=== PATIENT | female | born 1990 | race Caucasian/White ===

== ENCOUNTER 2019-08-15 10:56 | Emergency (ER) | payer SELFPAY ==
[2019-08-15 11:09] VITALS: BP 128/88; PULSE 102; RESP 16; TEMP 36.4; O2SAT 99
--- NOTE | 2019-08-15 11:46 | ED.GENADULT ---
HPI - General Adult General Chief complaint: Nausea/Vomiting/Diarrhea Stated complaint: Throwing Up Time Seen by Provider: 08/15/19 11:46 History of Present Illness HPI narrative: This patient's had a 3-day history of intestinal upset with vomiting and diarrhea. She vomited approximately 15 times yesterday without any coffee-ground emesis or hematemesis. She has had 3-4 episodes of vomiting since she got up this morning. Again without any hematemesis or coffee-ground emesis. She has had 2-3 loose stools per day without any blood in the stools or black stools. She thought she might of had a low-grade fever but did not actually take it with a thermometer. She has not been traveling. No household members have been ill. She has not eaten at any restaurants or any food contamination problems have been reported. She has not changed her diet. She has not had any ear pain, no nasal drainage, no sore throat, no cough. She has had no hematuria, no dysuria, no pyuria. She has had no rashes. She said no known exposure to anyone with strep throat, mono, influenza, bronchitis, pneumonia that she is aware of. She has not been traveling. She has no history of pancreatitis, gallbladder disease, hepatitis, Crohn's disease, ulcerative colitis or other problems. She has not had any heartburn or reflux sensation. She states she is not and her last menstrual period was 1 week ago and normal. Related Data Allergies Allergy/AdvReac Type Severity Reaction Status Date / Time No Known Allergies Allergy Unverified 08/15/19 11:40 Review of Systems Review of Systems: Narrative: CONSTITUTIONAL: Denies fever, chills, or sweats. Noncontributory except as pertains to the past medical history and history of present illness. EYES: Denies visual changes, redness, or discharge. ENT: Denies rhinorrhea, congestion, sore throat, or otalgia. CARDIOVASCULAR: Denies chest pain, palpitations, or edema. RESPIRATORY: Denies cough or dyspnea. GASTROINTESTINAL: Denies abdominal pain, nausea, vomiting, or diarrhea. GENITOURINARY: Denies dysuria or hematuria. SKIN: Denies rash or itching. MUSCULOSKELETAL: Denies back pain, joint pain, or myalgia. NEUROLOGIC: Denies headache, numbness, or weakness. PSYCHIATRIC: Denies anxiety or depression. PMFSH Comments At time of signature, I have reviewed and agree with nursing past medical, surgical, social, and family history.Please see nursing chart for further information. There is no relevant family history pertinent to the presenting complaint. Exam Narrative: Exam Narrative: GENERAL: Well-appearing, well-nourished, and in no acute distress. HEAD: Normocephalic, atraumatic. EYES: PERRLA and EOMI. EARS: TM's clear bilaterally and the canals are clear. NOSE: Nares clear, no rhinorrhea or epistaxis. THROAT:Mucous membranes moist.Oropharynx Normal Without erythema or exudates. NECK: Supple. No adenopathy of the neck, supraclavicular, axillary, or inguinal areas. RESPIRATORY: No respiratory distress. Airway patent. Respirations non-labored. Clear to auscultation. There are no wheezes, no rales, no retractions, no use accessory muscle respirations. Patient's not cyanotic and not dyspneic. Her pulse ox on room air is 99% current temperature is 36.4 ?C. HEART: Regular rate and rhythm. No murmur heard. Normal peripheral pulses. ABDOMEN: Soft, nontender, nondistended, normal active bowel sounds.No masses. No rebound or guarding, No organomegaly. There is no CVA pain. No pain McBurney's point. She has a negative Dominguez sign and negative Rovsing sign. There are no pulsatile masses and no audible bruits. EXTREMITIES: No clubbing/cyanosis/ edema. Normal strength & range of motion. SKIN: Warm, dry.Normal color. No skin rash or skin lesions. She is well-nourished well-hydrated has moist mucous membranes and no tenting of the skin. NEURO: Alert and oriented. CN 2-12 grossly intact. No focal deficits. PSYCH: Normal mood and affect.
== END 2019-08-15 12:00 | disposition home or self-care (01) ==
PROVIDERS: Emergency Provider Family Medicine
DX: K52.9 Noninfective gastroenteritis and colitis, unspecified (principal)
CPT/HCPCS: 99213; G0463

== ENCOUNTER 2020-07-03 14:26 | Emergency (ER) | payer BC, SELFPAY ==
[2020-07-03 14:38] VITALS: BP 123/85; PULSE 81; RESP 16; TEMP 36.8; O2SAT 100
--- NOTE | 2020-07-03 15:16 | ED.FEMALEGU ---
HPI - Female Genitourinary General Chief complaint: Urogenital-Female Stated complaint: possible uti Source: patient and RN notes reviewed Mode of arrival: ambulatory Limitations: no limitations History of Present Illness HPI Narrative: This is a 29-year-old white female who presented to urgent care today complaining of painful urination, flank pain and suprapubic pain. According to patient she started experiencing the symptoms on 06/29/2020. She did ra cranberry juice with no relief. The patient denies SOB, CP, palpitation, extremity numbness, lightheadedness, dizziness, constipation, diarrhea, chills, or fever. Related Data Allergies Allergy/AdvReac Type Severity Reaction Status Date / Time No Known Allergies Allergy Unverified 08/15/19 11:40 Review of Systems Review of Systems: All systems reviewed & are unremarkable except as noted in HPI and below (10 point system review) [facility] Social History Social History Gender identity (if verbalized by the patient): Female Exam Narrative: Exam Narrative: GENERAL: This is a well-nourished, well-developed patient, in no apparent distress. HEAD: normocephalic, atraumatic. EYES: PERRL. Sclera clear/white. Vision is grossly intact. EARS: External ears normal, auditory canals clear and without drainage, TMs normal without perforation. Hearing grossly intact. NOSE: External nose normal with no obvious nasal discharge, nares without redness, no rhinorrhea. THROAT: Mucous membranes moist, posterior pharynx clear. NECK: Neck supple, non-tender without lymphadenopathy, masses or thyromegaly. CARDIOVASCULAR: Regular rate and rhythm without murmurs, gallops, or rubs. RESPIRATORY: Clear to auscultation. Breath sounds equal bilaterally. No wheezes, rales, or rhonchi. GASTROINTESTINAL: Abdomen soft, non-tender, nondistended. Bowel sounds are active. No hepato-splenomegaly, or palpable masses. No guarding. CVA negative SKIN: warm, intact with no suspicious lesions or rash, good texture and turgor. NEURO: awake, alert, and oriented to person, place and time. There were no obvious focal neurologic abnormalities. Steady gait EXTREMITIES: Normal range of motion. No edema. No calf tenderness. Negative Homans sign bilaterally. BACK: Nontender without deformity or crepitance. No flank tenderness. Course Course Emergency Course: Patient will receive Bactrim twice daily for 7 days Vital Signs Vital signs: Vital Signs Temperature 98.2 F 07/03/20 14:38 Pulse Rate 81 07/03/20 14:38 Respiratory Rate 16 07/03/20 14:38 Blood Pressure 123/85 07/03/20 14:38 Pulse Oximetry 100 07/03/20 14:38 Temperature 98.2 F 07/03/20 14:38 Pulse Rate 81 07/03/20 14:38 Respiratory Rate 16 07/03/20 14:38 Blood Pressure 123/85 07/03/20 14:38 Pulse Oximetry 100 07/03/20 14:38 MDM - Female Genitourinary Differential Diagnosis Differential diagnosis: Likely urinary tract infection Lab Data Attestation: I reviewed the patient's lab results. Lab results narrative: Culture sent out Labs: Urine Glucose Negative Reference Range: Negative Urine Bilirubin Negative Reference Range: Negative Urine Ketone Negative Reference Range: Negative Urine Specific [place] 1.025 Reference Range:1.001-1.035 Urine Blood 1+ Reference Range: Negative * * Urine pH 6.0 Reference Range: 5.0-9.0 Urine Protein Negative Reference Range: Neg
== END 2020-07-03 15:18 | disposition home or self-care (01) ==
PROVIDERS: Emergency Provider Nurse Practitioner
DX: N39.0 Urinary tract infection, site not specified (principal)
CPT/HCPCS: 81003; 87077; 87086; 87088; 99213; G0463

== ENCOUNTER 2021-01-10 17:33 | Emergency (ER) | payer BC, SELFPAY ==
[2021-01-10 17:56] VITALS: BP 128/79; PULSE 95; RESP 16; TEMP 37.1; O2SAT 99
--- NOTE | 2021-01-10 19:01 | ED.ABDPAIN ---
HPI - Abdominal Pain General Chief Complaint: Abdominal Pain Stated Complaint: vomiting/diarrhea Time Seen by Provider: 01/10/21 19:01 Source: patient and RN notes reviewed Mode of arrival: ambulatory Limitations: no limitations History of Present Illness HPI narrative: 30-year-old 4 month gestational female presents with complaints of nausea, vomiting, diarrhea, and intermittent abdominal pain for 1 day. ?Phoebe reports increasing nausea and vomiting throughout the day. ?Nausea, vomiting, diarrhea, and abdominal pain without blood. ?Reglan without relief. ?Phoebe reports vomiting with 1st . ?Exacerbating factors consist of eating and drinking. LBM today at approximately 16:15 without blood. ?Denies fever or chills. ?Denies headache, dizziness, and dysuria. ?Tolerating po intake fairly. ?Remains active. ?The patient reports she was diagnosed with COVID-19 in November 2019. The patient reports she is not waiting for the results of a COVID-19 lab test. ?The patient reports she does not have weakness or fatigue. ?The patient reports she does not have a new or worsening cough or shortness of breath. ?Denies chest pain. The patient reports she does not have any rhinorrhea, congestion, sore throat, or loss of taste or smell. ?Denies recent traveling. Denies concerns for COVID-19 or exposures. ?At this time, the patient is not suspected of having COVID-19. Some parts of this dictation were generated by voice recognition software and may contain typographical and/or grammatical inaccuracies. Related Data Home Medications Medication Instructions Recorded Confirmed metoclopramide HCl [Reglan] 10 mg PO Q6H 01/10/21 01/10/21 Allergies Allergy/AdvReac Type Severity Reaction Status Date / Time No Known Allergies Allergy Verified 01/10/21 18:06 Review of Systems Review of Systems: Narrative: CONSTITUTIONAL: Denies fever, chills, sweats. EYES: Denies visual changes, redness, discharge. ENT: Denies rhinorrhea, congestion, sore throat, otalgia. CARDIOVASCULAR: Denies chest pain, palpitations, edema. RESPIRATORY: Denies dyspnea, wheezing, cough. GASTROINTESTINAL: Complains of abdominal pain, vomiting, diarrhea, nausea, and decrease appetite. GENITOURINARY: Denies dysuria, hematuria, abnormal discharge. SKIN: Denies rash or itching. MUSCULOSKELETAL: Denies acute back pain, joint pain, or myalgia. NEUROLOGIC: Denies numbness or focal weakness. PSYCHIATRIC: Denies anxiety or depression. All systems reviewed & are unremarkable except as noted in HPI and below. PMFSH Past Medical History Medical History (Updated 01/16/21 @ 10:25 by TAMMY Rosado) Vomiting during Surgical History Surgical History (Updated 01/16/21 @ 18:54 by TAMMY Rosado) No significant past surgical history Family History Family History (Updated 01/16/21 @ 18:54 by TAMMY Rosado) Father , unknown reason per Phoebe Unknown family medical history Mother Hypertension Asthma Social History Social History (Updated 01/16/21 @ 18:50 by TAMMY Rosado) Smoking status: Former smoker Tobacco type: cigarettes Second hand tobacco smoke exposure: Yes Smoking end date: 06/06/20 Alcohol intake: former Alcohol use details: stopped using alcohol once she found out she was Substance use: never Substance use type: does not use Living arrangements: with family Occupation/Education: occupation Gender identity (if verbalized by the patient): Female Sexual Orientation (if Verbalized by the Patient): Straight or Heterosexual Comments At time of signature, I have reviewed and agree with the nursing past medical, surgical, social, and family history. Please see the nursing chart for further information. There is no relevant family history pertinent to the presenting complaint. Exam Narrative: Exam Narrative: GENERAL: This is a well-nourished, well-developed patient, in no
--- NOTE | 2021-01-10 19:15 | PC.NURSE ---
1913- Pt given jak maradiaga and crackluis
[2021-01-11 15:39] LABS: SARS-CoV-2 RNA PCR Negative
== END 2021-01-10 19:28 | disposition home or self-care (01) ==
PROVIDERS: Emergency Provider Nurse Practitioner Family
DX: O99.612 Diseases of the digestive system complicating pregnancy, second trimester (principal); Z3A.00 Weeks of gestation of pregnancy not specified; K52.9 Noninfective gastroenteritis and colitis, unspecified; O21.0 Mild hyperemesis gravidarum; Z87.891 Personal history of nicotine dependence; Z20.822 Contact with and (suspected) exposure to COVID-19
CPT/HCPCS: 99213; C9803; G0463; U0003; U0005

== ENCOUNTER 2021-03-04 19:47 | Observation (INO) | payer BC, SELFPAY ==
--- NOTE | 2021-03-04 20:00 | OBADM ---
This patient, Phoebe Brooks, admitted to the OB room OB Post 116 for observation. Patient/family oriented to hospital policies and general routines including ID bracelet, bed and alarms, visiting hours, pain management, procedures, bathroom and other care routines, personal items, smoking policy, room service/diet, and visiting hours. Patient/Family are encouraged to report perceived risks to care and to ask questions if they do not understand what they are told or what they should do.
[2021-03-04 20:05] VITALS: BMI 31.3
--- NOTE | 2021-03-04 21:00 | PC.NURSE ---
Pt had no contractions after arrival and states she she feels like she was on her feet too long. Dr. Blackwell notified of assessment at 2058. Pt to be discharged to home.
[2021-03-04 21:31] VITALS: BP 124/82; PULSE 87
--- NOTE | 2021-03-06 20:18 | PM.OBTRLD ---
OB - Triage/Final Diagnosis Visit Information Reason for evaluation: threatened labor Comments/Additional reasons for admission: I have assessed the risk for this patient, Phoebe Brooks, and determined that she would benefit from observation care.
== END 2021-03-04 21:53 | disposition home or self-care (01) ==
PROVIDERS: Admitting Provider Obstetrics & Gynecology; Visit Provider Obstetrics & Gynecology
DX: O47.03 False labor before 37 completed weeks of gestation, third trimester (principal); Z3A.21 21 weeks gestation of pregnancy
CPT/HCPCS: G0378; G0379

== ENCOUNTER 2021-04-20 19:28 | Emergency (ER) | payer BC, SELFPAY ==
--- NOTE | ~2021-04-20 | XR_ITS ---
EXAMINATION: XR chest 1V DATE: 04/20/2021 20:27 INDICATION: Shortness of breath on exertion. Dizziness. Left arm numbness. TECHNIQUE: A single frontal view of the chest was obtained. COMPARISON: Chest 2 views 10/16/2015 FINDINGS: The chest demonstrates clear lungs without pneumonia, pleural effusion, or pneumothorax. Th e heart size is normal. Surgical clips in the right upper quadrant are likely from cholecystectomy. IMPRESSION: 1. No acute cardiopulmonary disease. Reviewed, dictated and finalized at location A.
--- NOTE | ~2021-04-20 | CT_ITS ---
EXAMINATION: CTA chest PE protocol DATE: 04/21/2021 08:50 CDT INDICATION: . Shortness of breath. TECHNIQUE: Computed tomographic angiography (CTA) of the chest was performed with 100 mL Omnipaque-35 0 intravenous contrast. The dose-length product was 264.15 mGy-cm. Maximum intensity projection 3D-re constructions of the aorta and other arteries were constructed by the technologist on a separate work station. Automated exposure control and iterative reconstruction technique were employed. COMPARISON: None. FINDINGS: No significant pleural or pericardial effusion. Slightly increased number and size of axill jareth lymph nodes, likely reactive. Study is technically adequate without evidence for pulmonary emboli sm. No mediastinal or hilar lymphadenopathy. No significant pleural or pericardial effusion. Evaluati on of peripheral pulmonary arteries limited by motion artifact. The upper abdomen is unremarkable. No focal airspace consolidation. No endobronchial lesions. No evidence for aortic aneurysm or dissectio n. There are cholecystectomy clips. IMPRESSION: 1. No evidence for pulmonary embolism. No acute cardiopulmonary disease. Reviewed, dictated and finalized at location A.
[2021-04-20 19:52] VITALS: BP 126/74; PULSE 92; RESP 20; TEMP 36.2; O2SAT 100
--- NOTE | 2021-04-20 19:58 | ECG_ITS ---
Measurements Intervals [place] Rate: 84 P: 65 KS: 105 QRS: 28 QRSD: 85 T: 16 QT: 359 QTc: 424 Interpretive Statements SINUS RHYTHM WITH SHORT [place] INTERVAL INCOMPLETE RIGHT BUNDLE BRANCH BLOCK BORDERLINE ECG Electronically Signed On 04-21-2021 6:15:53 CDT by Shabbir Castellano D.O.
[2021-04-20 21:35] LABS: Basophils Absolute Auto 0.1 K/mm3 (0.0-0.1); Basophils Percent Auto 0.4 % (0.2-1.2); Eosinophils Absolute Auto 0.1 K/mm3 (0-0.3); Eosinophils Percent Auto 0.5 % (0-4.4); Hemoglobin 12.8 g/dL (12.0-15.0); Immature Granulocyte Absolute 0.07 K/mm3 (0.00-0.031); Immature Granulocyte Percent A 0.5 % (0-0.5); Lymphocytes Absolute Auto 3.12 K/mm3 (0.9-3.2); Lymphocytes Percent Auto 22.8 % (18.3-44.2); Mean Corpuscular HGB Conc 32.8 g/dl (32-36); Mean Corpuscular Hemoglobin 29.8 pg (26-34); Mean Corpuscular Volume 90.9 fl (80-100); Mean Platelet Volume 9.5 fl (7.4-10.4); Monocytes Absolute Auto 0.8 K/mm3 (0.1-0.6); Monocytes Percent Auto 5.5 % (2.6-8.5); Neutrophils Absolute Auto 9.6 K/mm3 (1.3-6.7); Neutrophils Percent Auto 70.3 % (45.5-73.1); Platelet Count Result 317 k/mm3 (150-375); Red Blood Count 4.29 M/mm3 (4.2-5.4); Red Cell Distribution Width 11.9 % (11.5-14.5); White Blood Count 13.7 K/mm3 (4.5-10.0)
[2021-04-20 21:46] LABS: Anion Gap 12 mmol/L (8-16); Blood Urea Nitrogen 11 mg/dL (7-17); Calcium 9.3 mg/dL (8.4-10.2); Carbon Dioxide 18 mmol/L (22-30); Chloride 106 mmol/L (98-107); Estimated CRCL calculation 99 ml/min; Estimated Glomerular Filt Rate > 60; Glucose 75 mg/dL (65-110); Sodium 136 mmol/L (137-145)
[2021-04-20 21:47] LABS: INR 0.9; Partial Thromboplastin Time 24.7 SECONDS (22.3-36.8); Prothrombin Time 12.2 Seconds (11.1-14.7)
[2021-04-20 21:58] LABS: NT Pro B Type Natriuretic Pept 44 pg/mL (5-100); Troponin I < 0.012 ng/mL (0.000-0.034)
--- NOTE | 2021-04-21 00:23 | ED.SOB ---
HPI - SOB/Dyspnea General Chief Complaint: Shortness of Breath/Dyspnea Stated Complaint: short of breath, 28 weeks Time Seen by Provider: 04/20/21 23:53 Source: patient Mode of arrival: ambulatory Limitations: no limitations History of Present Illness HPI Narrative: This is a 30 year old female [place] 28 weeks who presents for evaluation of shortness of breath. Patient has been noticed that she has been short of breath lately. This afternoon while she was at work she states she became dizzy. She states she started her shift at work at 3 pm. Around 4 pm, she was standing when became dizzy , sob and with weird Numbness in her arms. She denies chest pain, cough, nausea, vomiting, or fever. She reports this episode lasted 5 minutes. She reports having 3 episodes while she was at work so she came to ER. She thought her shortness of breath was due to . She reports she has had no symptoms in ER because she has been rest. She walked to bathroom and she reports shortness of breath with exertion but denies chest pain. She did not have dizziness either with ambulation in ER. She denies abdominal pain, cramping or spotting. Related Data Allergies Allergy/AdvReac Type Severity Reaction Status Date / Time No Known Allergies Allergy Verified 04/20/21 19:55 Review of Systems Review of Systems: All systems reviewed & are unremarkable except as noted in HPI and below PMFSH Past Medical History Medical History (Updated 04/21/21 @ 03:23 by Maggie Mcnally MD) Vomiting during Surgical History Surgical History (Updated 01/16/21 @ 18:54 by TAMMY Rosado) No significant past surgical history Family History Family History (Updated 01/16/21 @ 18:54 by TAMMY Rosado) Father , unknown reason per Phoebe Unknown family medical history Mother Hypertension Asthma Social History Social History (Updated 01/16/21 @ 18:50 by TAMMY Rosado) Smoking status: Former smoker Tobacco type: cigarettes Second hand tobacco smoke exposure: Yes Smoking end date: 06/06/20 Alcohol intake: former Alcohol use details: stopped using alcohol once she found out she was Substance use: never Substance use type: does not use Gender identity (if verbalized by the patient): Female Sexual Orientation (if Verbalized by the Patient): Straight or Heterosexual Exam Const: General: no acute distress and alert Orientation/consciousness: patient oriented x3 Eyes: Pupils: Equal, round and reactive pupils present EOM: EOMs intact bilaterally Resp: Effort & Inspection: normal respiratory effort and no retractions Auscultation: clear to auscultation bilaterally Cardio: Rate: regular rate Rhythm: regular rhythm Heart sounds: no murmurs GI: GI Palp: Yes Soft to palpation, No Tenderness to palpation present (GI), No Guarding due to palpation present (GI) and No Rigid due to palpation Auscultation: normal bowel sounds Other: gravid Skin: General skin exam: normal color Rashes: no rashes Neuro: General: patient oriented x3, moves all extremities and CN's II-XI intact bilaterally Extrem: General: normal to inspection Psych: Mental Status: mental status grossly normal Affect: normal affect Course Reevaluation(s) Reevaluation #1: Patient presented with shortness of breath with exertion . I Discussed CT risk and benefits regarding her . She was agreeable to CTA to rule out PE due to hypercoagulable state. No PE found on CT. She has mild leukocytosis. She has no dizziness . She will be discharged to follow up with OB. Date: 04/21/21 Time: 03:19 Vital Signs Vital signs: Vital Signs Temperature 97.2 F L 04/20/21 19:52 Pulse Rate 92 04/20/21 19:52 Respiratory Rate 20 04/20/21 19:52 Blood Pressure 126/74 04/20/21 19:52 Pulse Oximetry 100 04/20/21 19:52 Temperature 97.2 F L 04/20/21 19:52 Pulse Rate 75
[2021-04-21 00:32] VITALS: BP 115/80; PULSE 80
[2021-04-21 00:33] VITALS: BP 126/94; BP 132/82; PULSE 79; PULSE 83
[2021-04-21 00:48] LABS: Add Urine Microscopic? YES; Appearance Urine Clear (Clear); Bacteria Urine Trace /hpf; Bilirubin Urine Negative (Negative); Blood Urine Negative (Negative); Color Urine Yellow (Yellow); Glucose Urine UA Negative (Negative); Ketones Urine 1+ mg/dL (Negative); Leukocyte Esterase Ur Trace LEU/UL (Negative); Mucus Urine Rare /lpf; Nitrate Urine Negative (Negative); Protein Urine 1+ mg/dL (Negative); Specific Grav Ur 1.028 (1.001-1.035); Squamous Epithelial Cell Urine Few /hpf (Few); WBC Urine 0-3 /hpf
[2021-04-21 01:41] VITALS: BP 119/80; PULSE 76; RESP 20; O2SAT 100
[2021-04-21 03:10] VITALS: BP 111/79; PULSE 75; RESP 18; O2SAT 100
== END 2021-04-21 03:47 | disposition home or self-care (01) ==
PROVIDERS: Emergency Medicine; Emergency Provider General Practice
DX: O26.893 Other specified pregnancy related conditions, third trimester (principal); R06.00 Dyspnea, unspecified; Z87.891 Personal history of nicotine dependence; Z3A.28 28 weeks gestation of pregnancy; I45.10 Unspecified right bundle-branch block
CPT/HCPCS: 36415; 71045; 71275; 80048; 81001; 83880; 84484; 85025; 85610; 85730; 93005; 99284; Q9967

== ENCOUNTER 2021-06-01 12:28 | Outpatient (RCR) | payer BC, SELFPAY ==
[2021-06-01 13:02] VITALS: BP 108/67; PULSE 80
== END 2021-07-19 09:40 | disposition home or self-care (01) ==
LOC: ANHOBOP 12:28
PROVIDERS: Visit Provider Obstetrics & Gynecology
DX: O24.419 Gestational diabetes mellitus in pregnancy, unspecified control (principal); Z3A.34 34 weeks gestation of pregnancy
CPT/HCPCS: 59025

== ENCOUNTER 2021-06-04 15:42 | Observation (INO) | payer BC, SELFPAY ==
[2021-06-04 16:05] VITALS: BP 116/78; PULSE 87
[2021-06-04 16:15] VITALS: BP 111/82; PULSE 90
[2021-06-04 16:30] VITALS: BP 111/75; PULSE 88
[2021-06-04 16:30] LABS: Add Urine Microscopic? YES; Appearance Urine Cloudy (Clear); Bacteria Urine Trace /hpf; Bilirubin Urine Negative (Negative); Blood Urine Negative (Negative); Color Urine Yellow (Yellow); Glucose Urine UA Negative (Negative); Ketones Urine Negative (Negative); Leukocyte Esterase Ur Trace LEU/UL (Negative); Mucus Urine Rare /lpf; Nitrate Urine Negative (Negative); Protein Urine Negative (Negative); Specific Grav Ur 1.026 (1.001-1.035); Squamous Epithelial Cell Urine Occasional /hpf (Few); Urobilinogen Urine Negative mg/dL (<2.0)
[2021-06-04 16:45] VITALS: BP 119/76; PULSE 88
[2021-06-04 16:58] VITALS: TEMP 36.6
--- NOTE | 2021-06-04 17:06 | OBADM ---
This patient, Phoebe Brooks, admitted to the OB room OB Post 111 for observation. Patient/family oriented to hospital policies and general routines including ID bracelet, bed and alarms, visiting hours, pain management, procedures, bathroom and other care routines, personal items, smoking policy, room service/diet, and visiting hours. Patient/Family are encouraged to report perceived risks to care and to ask questions if they do not understand what they are told or what they should do.
--- NOTE | 2021-06-04 17:41 | PM.OBTRLD ---
OB - Triage/Final Diagnosis Visit Information Comments/Additional reasons for admission: I have assessed the risk for this patient, Phoebe Brooks, and determined that she would benefit from observation care. Evaluation Laboratory results: Laboratory Tests 06/04/21 16:19 Urine Color Yellow Urine Appearance Cloudy H Urine pH 5.0 Ur Specific [place] 1.026 Urine Protein Negative Urine Glucose (UA) Negative Urine Ketones Negative Ur Blood (Man) Negative Urine Nitrate Negative Urine Bilirubin Negative Urine Urobilinogen Negative Leukocyte Esterase Rfl Trace H Urine RBC 3-5 H Urine WBC 4-6 H Ur Squamous Epith Cells Occasional Urine Bacteria Trace Urine Mucus Rare Vital signs: Vital Signs - 24 hr 06/04/21 16:05 06/04/21 16:15 06/04/21 16:30 Temperature Pulse Rate 87 90 88 Blood Pressure 116/78 111/82 111/75 06/04/21 16:45 06/04/21 16:58 Temperature 36.6 C Pulse Rate 88 Blood Pressure 119/76 Final Diagnosis (1) Abdominal pain affecting : Code(s): O26.899 - Other specified related conditions, unspecified trimester; R10.9 - Unspecified abdominal pain Status: Acute (2) UTI (urinary tract infection): Code(s): N39.0 - Urinary tract infection, site not specified Status: Acute
== END 2021-06-04 17:20 | disposition home or self-care (01) ==
PROVIDERS: Admitting Provider Obstetrics & Gynecology; Visit Provider Obstetrics & Gynecology
DX: O23.43 Unspecified infection of urinary tract in pregnancy, third trimester (principal); N39.0 Urinary tract infection, site not specified; Z3A.34 34 weeks gestation of pregnancy; O26.893 Other specified pregnancy related conditions, third trimester; R10.9 Unspecified abdominal pain
CPT/HCPCS: 81001; G0378; G0379

== ENCOUNTER 2021-06-10 14:38 | Observation (INO) | payer BC, SELFPAY ==
[2021-06-10 15:00] VITALS: BP 129/71; PULSE 89
[2021-06-10 15:15] VITALS: BP 116/75; PULSE 92
[2021-06-10 15:29] VITALS: BP 116/75; PULSE 91
--- NOTE | 2021-06-10 15:33 | OBADM ---
This patient, Phoebe Brooks, admitted to the OB room Labor/Delivery/Recovery 106 for observation. Patient/family oriented to hospital policies and general routines including ID bracelet, bed and alarms, visiting hours, pain management, procedures, bathroom and other care routines, personal items, smoking policy, room service/diet, and visiting hours. Patient/Family are encouraged to report perceived risks to care and to ask questions if they do not understand what they are told or what they should do.
--- NOTE | 2021-06-10 15:53 | PC.NURSE ---
1526- SPoke with Dr. Blackwell, contractions irregular, patient states they are no stronger than they were before, ROM plus negative orders to discharge patient to home.
== END 2021-06-10 15:53 | disposition home or self-care (01) ==
PROVIDERS: Admitting Provider Obstetrics & Gynecology; Visit Provider Obstetrics & Gynecology
DX: O47.03 False labor before 37 completed weeks of gestation, third trimester (principal); Z3A.35 35 weeks gestation of pregnancy
CPT/HCPCS: 59025; 84112; G0378; G0379

== ENCOUNTER 2021-06-14 20:29 | Outpatient (CLI) | payer BC, SELFPAY ==
[2021-06-14 20:58] VITALS: PULSE 82
[2021-06-14 21:00] VITALS: BP 128/91; PULSE 84
== END 2021-06-14 21:12 | disposition home or self-care (01) ==
LOC: ANHOBOP 20:52 → ANHLDR 06-22 06:51
PROVIDERS: Visit Provider Obstetrics & Gynecology
DX: O26.899 Other specified pregnancy related conditions, unspecified trimester (principal); Z3A.00 Weeks of gestation of pregnancy not specified
CPT/HCPCS: 59025; 99199

== ENCOUNTER 2021-06-23 14:29 | Observation (INO) | payer BC, SELFPAY ==
[2021-06-23 14:50] VITALS: BMI 32.6
--- NOTE | 2021-06-27 11:55 | PM.OBTRLD ---
OB - Triage/Final Diagnosis Visit Information Comments/Additional reasons for admission: I have assessed the risk for this patient, Phoebe Brooks, and determined that she would benefit from observation care.
== END 2021-06-23 16:43 | disposition home or self-care (01) ==
PROVIDERS: Admitting Provider Obstetrics & Gynecology; Visit Provider Obstetrics & Gynecology
DX: O47.1 False labor at or after 37 completed weeks of gestation (principal); Z3A.37 37 weeks gestation of pregnancy
CPT/HCPCS: 99199; G0378; G0379

== ENCOUNTER 2021-06-25 02:00 | Inpatient (IN) | payer BC, SELFPAY ==
[2021-06-25] VITALS (12 sets, daily range): BP systolic 118–144; BP diastolic 75–91; PULSE 71–90; RESP 16–18; TEMP 36.5–36.9; O2SAT 99; BMI 32.6
--- NOTE | 2021-06-25 02:25 | LDADM ---
This patient, Phoebe Brooks, was admitted to Labor/Delivery/Recovery 106 on 06/25/21 at 02:00. Plans for labor, pain management and were discussed with patient. Patient/family oriented to hospital policies and general routines including ID bracelet, bed and alarms, visiting hours, pain management, procedures, bathroom and other care routines, personal items, smoking policy, room service/diet and guest tray routines, security routines, and visiting hours. Patient/Family are encouraged to report perceived risks to care and to ask questions if they do not understand what they are told or what they should do. See OBIX for further documentation.
[2021-06-25 02:43] LABS: Glucose Point of Care 94 mg/dl (65-105)
[2021-06-25 02:46] LABS: Basophils Absolute Auto 0.1 K/mm3 (0.0-0.1); Basophils Percent Auto 0.4 % (0.2-1.2); Eosinophils Absolute Auto 0.1 K/mm3 (0-0.3); Eosinophils Percent Auto 0.5 % (0-4.4); Hematocrit 37.5 % (37.0-47.0); Hemoglobin 12.5 g/dL (12.0-15.0); Immature Granulocyte Percent A 0.7 % (0-0.5); Lymphocytes Absolute Auto 4.24 K/mm3 (0.9-3.2); Lymphocytes Percent Auto 30.9 % (18.3-44.2); Mean Corpuscular HGB Conc 33.3 g/dl (32-36); Mean Corpuscular Hemoglobin 28.3 pg (26-34); Mean Platelet Volume 10.5 fl (7.4-10.4); Monocytes Percent Auto 7.4 % (2.6-8.5); Neutrophils Absolute Auto 8.3 K/mm3 (1.3-6.7); Neutrophils Percent Auto 60.1 % (45.5-73.1); Platelet Count Result 304 k/mm3 (150-375); Red Blood Count 4.41 M/mm3 (4.2-5.4); Red Cell Distribution Width 12.6 % (11.5-14.5); White Blood Count 13.7 K/mm3 (4.5-10.0)
--- NOTE | 2021-06-25 03:35 | PM.IMHP ---
H&P: HPI History of Present Illness Date/Time: 06/25/21 03:26 Phoebe is a 30yo @ 37.6wks (LEILANI 07/10/21) who presented to L&D in active labor; found to be 6cm, requesting epidural. She, however, rapidly dilated and was unable to get an epidural in time. She has had regular care and co-management with [facility]. She reported waking up with painful contractions at 0100. No VB or LOF. Her is complicated by: - A2GDM on metformin and insulin - Request for sterilization; [place] form signed 06/06/21 - Anemia on iron daily - CMV non-immune Chief Complaint: painful contractions Review of Systems Review of Systems: All systems reviewed & are unremarkable except as noted in HPI and below (HPI) [facility] Past Medical History Medical History Vomiting during Surgical History Surgical History No significant past surgical history Family History Family History Father , unknown reason per Phoebe Unknown family medical history Mother Hypertension Asthma Social History Social History Smoking status: Former smoker Tobacco type: cigarettes Second hand tobacco smoke exposure: Yes Smoking end date: 06/06/20 Alcohol intake: former Alcohol use details: stopped using alcohol once she found out she was Substance use: never Substance use type: does not use Gender identity (if verbalized by the patient): Female Sexual Orientation (if Verbalized by the Patient): Straight or Heterosexual Spiritual care concerns: No Meds Home Medications and Allergies Home Medications Medication Instructions Recorded Confirmed Type Novolin N NPH U-100 Insulin 16 unit SUBCUT HS 06/01/21 06/20/21 History PNV cmb#95-ferrous fumarate-FA 1 tablet PO DAILY 06/01/21 06/20/21 History [] insulin lispro [Humalog U-100 6 unit SUBCUT DAILY 06/01/21 06/20/21 History Insulin] metformin 1,000 mg PO BID 06/20/21 06/20/21 History Allergies Allergy/AdvReac Type Severity Reaction Status Date / Time No Known Allergies Allergy Verified 04/20/21 19:55 Exam Const: General: cooperative, healthy appearing and acute distress (with contractions) moderate Resp: Effort & Inspection: normal respiratory effort Cardio: Rate: regular rate GI: Inspection: non-distended GI Palp: No abdominal tenderness and Yes Soft to palpation : Other: FHT's: 130's/ mod megan/ + accels/ no decels - cat 1 TOCO: ctx's q1-2 min Membranes: SROM, clear 0245 Cervix: C/C/+2 Skin: General skin exam: normal color Neuro: General: oriented to person Extrem: General: normal to inspection Psych: Appearance: grossly normal Affect: normal affect Attitude: cooperative H&P: Results Labs Labs: Short CBC 06/25/21 Range/Units 02:31 WBC 13.7 H (4.5-10.0) K/mm3 Hgb 12.5 (12.0-15.0) g/dL Hct 37.5 (37.0-47.0) % Plt Count 304 (150-375) k/mm3 Assessment and Plan Assessment and plan (1) Active labor at term: Status: Acute (2) Gestational diabetes: Qualifiers: Gestational diabetes mellitus control: insulin-controlled Trimester: third trimester Qualified Code(s): O24.414 - Gestational diabetes mellitus in , insulin controlled Code(s): O24.419 - Gestational diabetes mellitus in , unspecified control Status: Acute Additional Plan - Admitted to L&D for precipitous delivery - GBS negative
--- NOTE | 2021-06-25 03:37 | P.PCNOB_ITS ---
OB - Delivery Note Procedure Delivery date: 06/25/21 events: Gestational Diabetes Intrapartal events: Precipitous Labor < 3 hours Induction method: none Delivery monitor: external FHT and external uterine Route of delivery: Laceration Description: Perineal - 1st Degree Delivery repair: vicryl Quantitative Blood Loss (ml): 250 Anesthesia type: None Disposition: floor Baby Date of : 06/25/21 Time of : 03:03 Weeks of gestation at delivery: 37 (.6) gender: Female Weight (pounds): 6 Weight (ounces): 0 presentation: vertex position: Right Occiput Transverse Placenta delivery description: Expressed cord vessel description: 3 Vessels and Delayed Cord Clamping score one minute: 8 score five minutes: 9 Narrative: Phoebe presented to Labor and delivery in active labor and had a precipitous delivery. She pushed with good maternal effort and delivered the head ov er intact perineum. She easily delivered the infant's shoulders and body without complication. The infant was immediately placed skin to skin and had spontaneous cry. The umbilical cord was then clamped and cut. With Pitocin running and gentle downward traction on the cord, the placenta delivered without complications. Good fundal tone with minimal bleeding was noted. Patient was examined and a first-degree perineal laceration was noted. The patient was anesthetized with 1% lidocaine and repaired in normal fashion using 3-0 Vicryl. Good hemostasis was noted. Sponge, lap, instrument, needle counts were correct at the end of procedure. Mom and baby were left bonding in the birthing suite in stable condition.
[2021-06-25] MEDS: IBUPROFEN 600 MG TABLET PO ×3 (05:14→23:49)
--- NOTE | 2021-06-25 06:24 | OBPPTRN ---
06/25/2021 at 0600 Patient transferred to post room 290. Support person present. Patient understands she needs to call out before attempting to ambulate or if any needs arise.
[2021-06-25 09:59] LABS: Rapid Plasma Reagin Non-Reactive (NonReactive)
[2021-06-25] MEDS: ACETAMINOPHEN 325 MG TABLET 650 MG PO (23:49)
[2021-06-26] VITALS: BP 125/83; PULSE 75; RESP 18; TEMP 36.6
[2021-06-26] MEDS: TETANUS,DIPHTHERIA,AC PERTUSSIS ADULT (0.5 ML) BOOSTRIX IM (04:33)
--- NOTE | 2021-06-26 07:41 | P.PNOB_ITS ---
OB - PN: Subj Subjective Date/time seen: 06/26/21 07:41 PPD#1 Phoebe reports doing well today. She reports her bleeding is light. Her pain is controlled with PO meds. She has tolerated regular diet, voided, passed gas and ambulated. She is bottle feeding. She would like to be discharged home today if Марина can also go home. She denies CP, SOB, fever, chills, N/V, LYONS, vision changes, dizziness or palpitations. OB - PN: Obj Data Labs CBC & Chem 7: 06/26/21 04:22 Labs: Laboratory Results - last 24 hr 06/25/21 06/26/21 02:31 04:22 Hgb 10.0 L Hct 30.0 L RPR Non-reactive OB - PN A/P Assessment and Plan (1) Normal vaginal delivery: Code(s): O80 - Encounter for full-term uncomplicated delivery Status: Acute Plan day: 1 Plan: routine care and discharge home (possible today) Comments: - Pelvic rest; f/u 4wks - ER return precautions: fever, n/v/abd pain, bleeding, HTN Time Spent With Patient Time: Total time spent is greater than 50% in coordination of care (as documented) at patient's floor/unit and/or counseling patient: Review of Systems Review of Systems: All systems reviewed & are unremarkable except as noted in HPI and below (HPI) Exam Const: General: cooperative, comfortable and no acute distress Nutritional Appearance: obese Resp: Effort & Inspection: normal respiratory effort Auscultation: clear to auscultation bilaterally Cardio: Rate: regular rate GI: Inspection: normal to inspection and non-distended GI Palp: No abdominal tenderness and Yes Soft to palpation Auscultation: normal bowel sounds : Other: fundus firm Skin: General skin exam: normal color Neuro: General: patient oriented x3 Extrem: General: normal to inspection Psych: Appearance: grossly normal Affect: normal affect Attitude: coope rative
[2021-06-26 08:00] VITALS: BP 119/77; PULSE 73; RESP 18; TEMP 36.8; O2SAT 98
--- NOTE | 2021-06-26 10:28 | PC.NURSE ---
Patient viewed the discharge video Mother & Baby Care, The First Two Weeks online. Patient was given the opportunity and encouraged to ask questions. Patient verbalized understanding of information shared and has been given the mother/baby guide for home reference.
[2021-06-27 09:39] VITALS: BP 118/74; PULSE 80; RESP 20; TEMP 36.4; O2SAT 100
--- NOTE | 2021-06-27 19:08 | PM.OBDSVD ---
DS: Admitting Diagnosis Discharge Date 06/26/21 Admitting Diagnosis active labor at term DS: Discharge Diagnosis Discharge Diagnosis (1) Normal vaginal delivery: Code(s): O80 - Encounter for full-term uncomplicated delivery Status: Acute (2) Gestational diabetes: Qualifiers: Gestational diabetes mellitus control: insulin-controlled Trimester: third trimester Qualified Code(s): O24.414 - Gestational diabetes mellitus in , insulin controlled Code(s): O24.419 - Gestational diabetes mellitus in , unspecified control Status: Acute OB - DS: Summary OB Procedures : NST and Ultrasound OB Procedures Intrapartum: Spontaneous Vag Delivery OB Procedures: : None Peripartum Data Delivery Method: Natural Vaginal Laceration Description: Perineal - 1st Degree complications: none 1: Gender: Female Disposition of : home Status at Discharge Functional status at discharge: independent ambulation Overall status at discharge: patient is back to baseline Time Spent with Patient Time attestation: Total time spent providing and/or coordinating discharge services: Time spent: Less than 30 minutes Exam Const: General: cooperative, healthy appearing, comfortable and no acute distress Resp: Effort & Inspection: normal respiratory effort Auscultation: clear to auscultation bilaterally Cardio: Rate: regular rate GI: Inspection: normal to inspection and non-distended GI Palp: No abdominal tenderness and Yes Soft to palpation Auscultation: normal bowel sounds : Other: fundus firm Skin: General skin exam: normal color Neuro: General: patient oriented x3 Extrem: General: normal to inspection Psych: Appearance: grossly normal Affect: normal affect Attitude: cooperative DS: Data Data Completed and Pending Pending studies at discharge: Pending at discharge 06/25/21 04:29 Surgical [PTH] Routine Discharge Plan Discharge Attending physician on discharge: Avelina Love Discharging Clinician: Avelina Love Anticipated Discharge Date/Time: 06/26/21 17:00 Patient Disposition: Home, Self-Care Activity: pelvic rest Diet: regular Discharge Instructions: Education: Mom and Baby Guide Given to: Mother Follow-Up: Call your delivering provider's office for an appointment to be seen in: 4 Weeks Mom and baby should come to the [facility] for the follow-up appointment. Appointment Date/Time: June 27, 2021 at 10:00 am What to expect at your follow-up visit: Physical Assessment Call [phone] if you are unable to keep your appointment time. BREAST CARE: * Wear a snug supportive bra. * Bottle Feeding: * May apply ice packs EPISIOTOMY/PERINEAL CARE: * Until bleeding stops, use your echo bottle after urinating * Change your pad frequently throughout the day * You may take sitz baths several times a day (fill your bathtub with warm water and soak for 20 minutes.) Do NOT bathe in the water * No tub baths until seen by your physician - You may shower ACTIVITY: * Rest as much as possible. * Do not exercise or lift anything heavier than your baby (such as laundry or other children.) * Avoid stairs or driving as much as possible. * Do not put anything into the vagina. No douching, tampons, or sexual activity until seen by physician. NOTIFY PHYSICIAN IF YOU HAVE ANY QUESTIONS OR IF ANY OF THE FOLLOWING SYMPTOMS OCCUR: * If your episiotomy or incision becomes red, swollen, or more painful than what you have experienced in the hospital. * If your vaginal bleeding becomes foul smelling. * If your vaginal bleeding becomes more heavy than a period or if your bleeding changes from pink to bright red. However, you may pass an occasional walnut-sized clot once or twice for the first week . * If you experience a sharp, shooting pain in you calves.
== END 2021-06-26 12:42 | disposition home or self-care (01) | DRG 560 ==
LOC: ANHLDR 02:12 → ANHOB2 06:09
PROVIDERS: Admitting Provider Obstetrics & Gynecology; Visit Provider Obstetrics & Gynecology
DX: O24.424 Gestational diabetes mellitus in childbirth, insulin controlled (principal); O99.02 Anemia complicating childbirth; D64.9 Anemia, unspecified; O62.3 Precipitate labor; O70.0 First degree perineal laceration during delivery; Z3A.37 37 weeks gestation of pregnancy; Z37.0 Single live birth
CPT/HCPCS: 36415; 82948; 85014; 85018; 85025; 86592; 86850; 86900; 86901; 88307; 90715; A9270; J2795

== ENCOUNTER 2021-12-26 01:59 | Day surgery (SDC) | payer BC, SELFPAY ==
[2021-12-14 15:02] VITALS: BMI 39.5
--- NOTE | 2021-12-14 15:08 | PC.NURSE ---
Report to the Outpatient Waiting Room, entrance under the green pavilion located off [facility], at time 1030 on date 12/26/21. OR Time: 1230. - You and your visitor will be asked a series of questions to screen for COVID 19 for your protection. - Only one visitor is allowed at this time. - The patient visitor is requested to leave or wait in car when not with patient. - A mask is required within the hospital. Patients may have clear liquids (water, carbonated beverages, clear teas, apple juice) until 3 hours prior to surgery with a maximum of 20 ounces. - No food from midnight until time of surgery Take the following medications with a SIP of water the morning of surgery: NONE Medications to discontinue per physician: N/A Date to take last dose: N/A Please no make-up, nail kenyan, hairspray, perfume, deodorant, or body powder the day of surgery. No jewelry (including any body piercings) or valuables the day of surgery, leave them at home. Please take a shower or bath the night before, or the morning of, surgery with an antibacterial soap. Wear comfortable, loose fitting clothing. - Jewelry must be removed prior to entering the operating room. Rings and piercings that are not removed may be cut off. - The hospital will not accept responsibility for valuables. - Please leave all valuables, including medications, at home the day of surgery. If you are going home after surgery, a licensed [employer] company truck driver must drive you home. - NO public transportation without another adult. - We recommend that an adult stay with you for 24 hours following discharge. - We also recommend that you do not drive, make important decision, drink alcoholic beverages, or take any drugs that were not prescribed by your health care provider for at least 24 hours after your discharge time. Follow any additional instructions given to you from your surgeon. If you or anyone in your household have experienced Covid symptoms in the past week, please notify your surgeon or the nurse liaison at the phone number below for possible testing. Telephone instructions given to PT - LINDA CRUZ and asked if any additional questions and then verbalized understanding. Patient advised to call surgeon office or pre surgery nurse liaison [phone] if any additional questions.
[2021-12-26] VITALS (10 sets, daily range): BP systolic 117–153; BP diastolic 79–98; PULSE 55–81; RESP 14–18; TEMP 36.4; O2SAT 99–100
--- NOTE | 2021-12-26 08:39 | PM.IMHP ---
H&P: HPI History of Present Illness Date/Time: 12/26/21 08:39 31-year-old female 2 para 2001 presents for permanent sterilization. She has been on control pills and desires a more permanent method. We have discussed nonsurgical measures such as IUD and Depo-Provera and she prefers a permanent sterilization procedure. We have discuss the risk of regret and failure of the procedure, and she states good understanding and desires to proceed. Chief Complaint: undesired fertility Review of Systems Constitutional: Constitutional: Reports no additional constitutional complaints PMFSH Past Medical History Medical History Vomiting during Surgical History Surgical History No significant past surgical history Family History Family History Father , unknown reason per Phoebe Unknown family medical history Mother Hypertension Asthma Social History Social History Years smoked: 0.5 Smoking status: Former smoker Tobacco type: cigarettes Second hand tobacco smoke exposure: Yes Smoking end date: 07/07/15 Alcohol intake: current Alcohol use details: RARE Substance use: never Substance use type: does not use Living arrangements: with family Gender identity (if verbalized by the patient): Female Sexual Orientation (if Verbalized by the Patient): Straight or Heterosexual Spiritual care concerns: No Meds Home Medications and Allergies Home Medications Medication Instructions Recorded Confirmed Type norethindrone acetate 1 mg-ethinyl 1 tablet PO DAILY #63 tabs 08/21/21 12/14/21 Rx estradiol 20 mcg tablet Allergies Allergy/AdvReac Type Severity Reaction Status Date / Time No Known Allergies Allergy Verified 12/14/21 15:01 Exam Const: General: cooperative, healthy appearing and comfortable Resp: Effort & Inspection: normal respiratory effort Auscultation: clear to auscultation bilaterally Cardio: Rate: regular rate Rhythm: regular rhythm GI: Inspection: normal to inspection Auscultation: normal bowel sounds : External Female Exam: normal external appearance Speculum Exam - Vagina: normal appearance of the vagina Speculum Exam - Cervix: normal appearance of the cervix Bimanual exam- vagina & uterus: normal bimanual exam Bimanual Exam- Adnexa, other: normal adnexae Assessment and Plan Assessment and plan (1) Encounter for female sterilization procedure: Code(s): Z30.2 - Encounter for sterilization Status: Acute Assessment and Plan: will proceed with bilateral tubal ligation via electrocautery. As noted in the HPI we have discussed the permanence failure rate increased risk of regret patient states good understanding and strongly desires to proceed with this permanent procedure.
[2021-12-26] MEDS: ACETAMINOPHEN 500 MG TABLET 1000 MG PO (10:54)
--- NOTE | 2021-12-26 10:56 | P.PNAN_ITS ---
Anes - Initial Pre Proc Eval Procedure: Operation Date: 12/26/21 12:30 Proposed Procedures p Laparoscopic Bilateral Tubal Ligation - Cl Blackwell MD Date/Time: 12/26/21 10:56 Surgeon: Cl Blackwell MD Pre Op Diagnosis: desires sterilization Patient Data Age: 31 Gender: F Height: 1.57 m Weight: 98 kg Allergies Allergy/AdvReac Type Severity Reaction Status Date / Time No Known Allergies Allergy Verified 12/26/21 10:49 Home Medications Medication Instructions Recorded Confirmed Type norethindrone acetate 1 mg-ethinyl 1 tablet PO DAILY #63 tabs 08/21/21 12/26/21 Rx estradiol 20 mcg tablet Patient hx anesthesia problems: none Family hx anesthesia problems: none Results Review: All pre-operative results and documents have been reviewed as part of the pre- operative evaluation. [facility] Past Medical History Medical History Vomiting during Surgical History Surgical History (Updated 12/26/21 @ 10:58 by Ivan Panchal MD) History of cholecystectomy Family History Family History Father , unknown reason per Phoebe Unknown family medical history Mother Hypertension Asthma Social History Social History Years smoked: 0.5 Smoking status: Former smoker Tobacco type: cigarettes Second hand tobacco smoke exposure: Yes Smoking end date: 07/07/15 Alcohol intake: current Alcohol use details: RARE Substance use: never Substance use type: does not use Living arrangements: with family Gender identity (if verbalized by the patient): Female Sexual Orientation (if Verbalized by the Patient): Straight or Heterosexual Spiritual care concerns: No Anes - Eval Final PreProcedure Day of Procedure 12/26/21 10:56 Patient weight: obese Heart: regular rate and rhythm Lungs: clear to auscultation Airway: Mallampati scale class II Neurological: alert and oriented Last oral intake: >/= 8 hours ASA classification: II Emergent: no Anesthesia type and monitoring: general ETT and standard monitoring Results Review: All pre-operative results and documents have been reviewed as part of the pre- operative evaluation. Informed Consent: The patient's anesthetic plan and its attendant risks and benefits were discussed with the patient/family/POA. Questions were solicited and answers provided to the satisfaction of the patient/family/POA.
[2021-12-26] MEDS: LACTATED RINGERS 1,000 ML 30 ML IV CONT ×2 (11:08→13:04)
[2021-12-26] MEDS: KETOROLAC 15 MG/ML VIAL (*BKC) IV PUSH (11:08)
--- NOTE | 2021-12-26 11:54 | WPDHPUPDATE1 ---
History and Physical Update Update Date/Time: 12/26/21 11:54 History and Physical has been reviewed, including an updated exam of the patient. There are NO changes in the patient's condition. Risks, benefits, and alternatives have been discussed and questions answered. Patient agrees to proceed with procedure.
--- NOTE | 2021-12-26 12:39 | W.PM.PROC2 ---
Procedure Note - Detailed Date of Procedure 12/26/21 Pre-op Diagnosis desires sterilization Post-op Diagnosis Same Procedure Performed Laparoscopic bilateral tubal ligation via electrocautery Surgeon Cl Blackwell MD Anesthesia General Indications Undesired fertility Findings Uterus mildly enlarged and boggy. Tubes and ovaries without abnormality. Description of Procedure Patient was prepped and draped in the usual for this procedure. Cervical instruments were placed for uterine mobility. Periumbilical and suprapubic incisions were made and trocars were placed under direct visualization. Using the bipolar cautery both tubes were grasped and cauterized in 3 places taking care to not come into contact with normal adjacent tissue. At this point the gas was allowed to escape incisions approximated using 4-0 Monocryl and the patient was sent to the cover room stable condition. Estimated Blood Loss 25 Drains No Packing No Pathology None sent Complications No immediate complications Condition Stable Disposition Same day [facility] Billing Surgery - Charge Forward: Surgery Billing
[2021-12-26] MEDS: ONDANSETRON INJ 4 MG/2 ML VIAL IV PUSH (12:52)
[2021-12-26] MEDS: fentaNYL CITRATE INJ (*CRX) 100 MCG/2 ML VIAL 25 MCG IV PUSH (12:54)
[2021-12-26] MEDS: oxyCODONE HCL (*CRX) 5 MG TAB IR PO (13:36)
== END 2021-12-26 14:16 | disposition home or self-care (01) ==
PROVIDERS: Visit Provider Obstetrics & Gynecology
PROC: (CPT 58671; principal; 2021-12-26 12:30)
DX: Z30.2 Encounter for sterilization (principal); Z87.891 Personal history of nicotine dependence; E66.9 Obesity, unspecified; Z68.28 Body mass index [BMI] 28.0-28.9, adult
CPT/HCPCS: 58670; A9270; J0330; J1100; J1885; J2250; J2405; J2704; J2710; J3010; J7120

== ENCOUNTER 2022-08-20 12:29 | Emergency (ER) | payer BC, SELFPAY ==
[2022-08-20 12:37] VITALS: BP 110/69; PULSE 76; RESP 12; TEMP 36.4; O2SAT 100
--- NOTE | 2022-08-20 12:45 | ED.NAVMDI ---
HPI - Nausea/Vomiting/Diarrhea General Chief complaint: Nausea/Vomiting/Diarrhea Stated complaint: Nausea/ Vomiting/Diarrhea Time Seen by Provider: 08/20/22 12:45 Source: patient and RN notes reviewed Mode of arrival: ambulatory Limitations: no limitations History of Present Illness HPI Narrative: 32-year-old female presenting for complaint of vomiting and diarrhea, onset yesterday. States she ate pizza prior to the symptoms, but no one else is sick. States she was unable to keep anything down yesterday. She is able to keep fluids down today. She has had dry heaves And a few episodes of small amount of diarrhea today. States she feels like symptoms are improving. Denies abdominal pain, urinary complaints, fevers, or chills. Has not taken anything for symptoms. Denies sick contacts. denies changes in medications or routine. Related Data Allergies Allergy/AdvReac Type Severity Reaction Status Date / Time No Known Allergies Allergy Verified 12/26/21 10:49 Review of Systems Review of Systems: CONSTITUTIONAL: Denies body aches, fever, chills ENT: Denies rhinorrhea, congestion CARDIOVASCULAR: Denies chest pain, palpitations, or edema. RESPIRATORY: Denies cough or dyspnea. GASTROINTESTINAL: Endorses nausea, vomiting, diarrhea. Denies abdominal pain, hematochezia, melena, hematemesis GENITOURINARY: Denies dysuria, hematuria, or CVA tenderness. SKIN: Denies rash, itching, or wounds. MUSCULOSKELETAL: Denies back pain, joint pain, or myalgia. NEUROLOGIC: Denies headache, numbness, tingling, or weakness. All systems reviewed & are unremarkable except as noted in HPI and below PMFSH Past Medical History Medical History Vomiting during Surgical History Surgical History History of cholecystectomy Family History Family History Father , unknown reason per Phoebe Unknown family medical history Mother Hypertension Asthma Social History Social History Years smoked: 0.5 Smoking status: Former smoker Tobacco type: cigarettes Second hand tobacco smoke exposure: Yes Smoking end date: 07/07/15 Alcohol intake: current Alcohol use details: RARE Substance use: never Substance use type: does not use Living arrangements: with family Occupation/Education: occupation Gender identity (if verbalized by the patient): Female Sexual Orientation (if Verbalized by the Patient): Straight or Heterosexual Spiritual care concerns: No Comments At time of signature, I have reviewed and agree with nursing past medical, surgical, social and family history unless otherwise noted. Please see nursing chart for further information. There is no relevant family history pertinent to the presenting complaint Exam Narrative: GENERAL: Mildly ill-appearing, nontoxic EYES: EOMI. Conjunctivae normal. ENT: Mucous membranes pink and moist. CHEST: No respiratory distress. Clear to auscultation. HEART: Regular rate and rhythm. No murmur appreciated. Normal peripheral pulses. ABDOMEN: abd soft, nondistended, normal active bowel sounds. mild epigastric tenderness with palpation; No guarding, rebound tenderness, asymmetry EXTREMITIES: Normal range of motion. No edema. SKIN: Warm, dry, no rash. Capillary refill normal. Normal skin turgor. NEURO: No focal deficits. Alert and oriented x3. PSYCH: Normal affect. Course Course Emergency Course: Patient is aware of diagnosis, understands and agrees to treatment plan. Anticipatory guidance given. Patient agrees to follow-up as directed and is aware of reasons to seek care at the emergency department. Portions of this record may have been created with voice recognition software Level of Care: Express Care Visit Vital Signs Vital sig
== END 2022-08-20 13:00 | disposition home or self-care (01) ==
PROVIDERS: Emergency Provider Nurse Practitioner Family
DX: R11.10 Vomiting, unspecified (principal); R19.7 Diarrhea, unspecified; Z87.891 Personal history of nicotine dependence
CPT/HCPCS: 99213; G0463

== ENCOUNTER 2023-03-21 12:32 | Emergency (ER) | payer BC, SELFPAY ==
[2023-03-21 12:40] VITALS: BP 127/91; PULSE 77; RESP 18; TEMP 36.8; O2SAT 100
--- NOTE | 2023-03-21 12:40 | ED.DENTAL ---
HPI - Dental/Oral General Chief complaint: Dental/Oral Stated complaint: right side tooth pain Time Seen by Provider: 03/21/23 13:06 Mode of arrival: ambulatory Limitations: no limitations History of Present Illness HPI Narrative: 32-year-old female presents concern for right upper dental pain that started yesterday. She reports she has had problems with her teeth before, has had to have teeth pulled. She reports she has been taking ibuprofen with some mild temporary relief. MD Complaint: tooth pain Related Data Allergies Allergy/AdvReac Type Severity Reaction Status Date / Time No Known Allergies Allergy Verified 03/21/23 12:45 Review of Systems Review of Systems: CONSTITUTIONAL: Denies malaise, chills, sweats, or fever. EYES: Denies visual changes ENT: Denies rhinorrhea, congestion, sinus pain, otalgia or sore throat. Reports right upper dental pain CARDIOVASCULAR: Denies chest pain, palpitations RESPIRATORY: Denies cough or dyspnea. SKIN: Denies rash or itching. MUSCULOSKELETAL: Denies myalgia. NEUROLOGIC: Denies numbness, weakness, or headache. All systems reviewed & are unremarkable except as noted in HPI and below PMFSH Past Medical History Medical History Vomiting during Surgical History Surgical History History of cholecystectomy Family History Family History Father , unknown reason per Phoebe Unknown family medical history Mother Hypertension Asthma Social History Social History Years smoked: 0.5 Smoking status: Former smoker Tobacco type: cigarettes Second hand tobacco smoke exposure: Yes Smoking end date: 07/07/15 Alcohol intake: current Alcohol use details: RARE Substance use: never Substance use type: does not use Living arrangements: with family Occupation/Education: occupation Gender identity (if verbalized by the patient): Female Sexual Orientation (if Verbalized by the Patient): Straight or Heterosexual Spiritual care concerns: No Comments At time of signature, agree with nursing past medical, surgical, social and family history. There is no relevant family history pertinent to the presenting complaint Exam Narrative: GENERAL: Well-appearing, well-nourished, and in no acute distress. HEAD: Normocephalic, atraumatic. EYES: PERRLA, sclera clear ENT: Nares clear, turbinates pink, no rhinorrhea or epistaxis. Mucous membranes moist. TM pearly alexis with sharp light reflex bilaterally; no tragal tenderness. Oropharynx without erythema or lesions. Tonsils not enlarged and without exudate. Missing teeth, broken teeth, caries noted, no facial swelling noted NECK: Supple. No lymphadenopathy. CHEST: No respiratory distress. Speaks in full sentences. HEART: Regular rate and rhythm. SKIN: Warm, dry, no visible rash. NEURO: Alert and oriented x3. PSYCH: Normal mood and affect Course Course Emergency Course: Patient is aware of diagnosis, understands and agrees to treatment plan. Anticipatory guidance given. Patient agrees to follow-up as directed and is aware of reasons to seek care at the emergency department. Portions of this record may have been created with voice recognition software Level of Care: Express Care Visit Vital Signs Vital signs: Reviewed. MDM - Dental/Oral MDM Narrative Medical decision making narrative: Patients pain and complaint coupled with physical findings are consistant with dentalgia. There are no focal signs of space occupying lesions that are compromising to the airway; no dysphagia, odynophagia, dysphonia, or dyspnea. No uvular deviation or soft palate edema. Patient is non-toxic appearing. The floor of the mouth is soft with no signs of Miah's Angina; no induration below man
== END 2023-03-21 13:19 | disposition home or self-care (01) ==
PROVIDERS: Emergency Provider Nurse Practitioner
DX: K08.89 Other specified disorders of teeth and supporting structures (principal); Z87.891 Personal history of nicotine dependence
CPT/HCPCS: 99213; G0463

== ENCOUNTER 2023-11-11 16:51 | Emergency (ER) | payer BC, SELFPAY ==
--- NOTE | 2023-11-11 16:52 | ED.SKABFB ---
HPI - Skin/Abscess/Foreign Bdy General Chief complaint: Skin/Abscess/Foreign Body Stated complaint: Rash Time Seen by Provider: 11/11/23 16:52 Source: patient Mode of arrival: ambulatory Limitations: no limitations History of Present Illness HPI narrative: Patient is a 33-year-old female presents with blistery rash on back for 4 days. Reports the rash is painful to touch and has a burning sensation. Patient has been taking Tylenol and ibuprofen with moderate relief. Denies any fever, chills, nausea, vomiting, diarrhea. Related Data Allergies Allergy/AdvReac Type Severity Reaction Status Date / Time pineapple Allergy Hives Uncoded 11/11/23 17:25 Review of Systems Review of Systems: All systems reviewed & are unremarkable except as noted in HPI and below Constitutional: Constitutional: Denies body ache(s), Denies chills, Denies fatigue, Denies fever(s), Denies headache(s), Denies malaise and Denies weakness Eyes: Eyes: Denies blurry vision, Denies irritation and Denies loss of vision ENT: Denies otalgia, Denies headache(s), Denies nasal discharge, Denies sinus pain and Denies sore throat Cardiovascular: Cardiovascular: Denies chest pain, Denies irregular heart rhythm and Denies dyspnea Respiratory: Respiratory: Denies dyspnea Gastrointestinal: Gastrointestinal: Denies abdominal pain, Denies melena, Denies hematochezia, Denies diarrhea, Denies nausea and Denies vomiting Musculoskeletal: Musculoskeletal: Denies back pain, Denies myalgias and Denies arthralgias Integumentary/Breasts: Skin/Breast: Denies pruritus and Reports rash Neurologic: Denies headache(s), Denies loss of vision and Denies weakness Psychiatric: Psychiatric: Reports no additional psychiatric complaints Endocrine: Endocrine: Denies fatigue PMFSH Past Medical History Medical History Vomiting during Surgical History Surgical History History of cholecystectomy Family History Family History Father , unknown reason per Phoebe Unknown family medical history Mother Hypertension Asthma Social History Social History Years smoked: 0.5 Smoking status: Former smoker Tobacco type: cigarettes Second hand tobacco smoke exposure: Yes Smoking end date: 07/07/15 Alcohol intake: current Alcohol use details: RARE Substance use: never Substance use type: does not use Living arrangements: with family Occupation/Education: occupation Gender identity (if verbalized by the patient): Female Sexual Orientation (if Verbalized by the Patient): Straight or Heterosexual Spiritual care concerns: No Comments At time of signature, agree with nursing past medical, surgical, social and family history. There is no relevant family history pertinent to the presenting complaint. Exam Const: General: cooperative, healthy appearing, comfortable, no acute distress and well nourished Nutritional Appearance: well nourished Orientation/consciousness: patient oriented x3 Limitations: no limitations HENMT: Head: normal to inspection, normocephalic and atraumatic Ears: hearing grossly normal bilaterally and external ears normal Face/Nose/Sinus: Normal external nose present, normal facial exam and face symmetric Face and sinus: normal facial exam and face symmetric Mouth: Yes lip normal Eyes: General: appearance normal, both eyes and all related structures Alignment and Position: alignment normal and position normal Periorbital: periorbital findings normal Eyelids: eyelids normal Pupils: Equal, round and reactive pupils present EOM: EOMs intact bilaterally Neck: Neck: normal visual inspection, full ROM and supple Chest: Chest palpation & inspection: normal inspection of the chest Resp: Effort & Inspe
[2023-11-11 17:07] VITALS: BP 124/78; PULSE 74; RESP 16; TEMP 36.6; O2SAT 100
== END 2023-11-11 17:50 | disposition home or self-care (01) ==
PROVIDERS: Emergency Provider Nurse Practitioner Family; PCP Internal Medicine
DX: B02.9 Zoster without complications (principal); Z87.891 Personal history of nicotine dependence
CPT/HCPCS: 99213; G0463

== ENCOUNTER 2024-05-07 08:05 | Emergency (ER) | payer BC, SELFPAY ==
--- NOTE | 2024-05-07 08:08 | ED_ITS ---
HPI - Headache General Chief Complaint: Headache Stated Complaint: migraine, couldn't move yesterday Time Seen by Provider: 05/07/24 08:07 Source: patient Mode of arrival: ambulatory Limitations: no limitations History of Present Illness HPI Narrative: Phoebe is a 33-year-old female patient presenting to the clinic today with complaints migraine headache x2 days. She reports symptoms started yesterday. Had headache so bad yesterday she said she could not move. She took Tylenol for her headache at that time. Rates her pain currently as 7/10. States the pain is sharp and burning pain to the occipital area and on the right side of her head behind her eye. No history of cluster headaches. Has had headaches like this before and was seen in the emergency room last year for similar episode and had a CT scan done at that time and was negative. She denies that this is the worst headache that she has ever had. Does have associated nausea with vomiting, visual changes, sensitivity to noise, and photosensitivity. Has some nasal congestion but denies any other URI symptoms. Vomited 1 time this morning. Denies any fever or neck stiffness. History cholecystectomy and tubal ligation. Just finished her menses. Related Data Home Medications Medication Instructions Recorded Confirmed ergocalciferol (vitamin D2) 1,250 1,250 mcg PO WEEKLY 05/07/24 05/07/24 mcg (50,000 unit) capsule fluoxetine 10 mg capsule 10 mg PO DAILY 05/07/24 05/07/24 magnesium oxide 400 mg (241.3 mg 400 mg PO DAILY 05/07/24 05/07/24 magnesium) tablet Allergies Allergy/AdvReac Type Severity Reaction Status Date / Time No Known Allergies Allergy Verified 05/07/24 08:25 Review of Systems Review of Systems: Pertinent positives per HPI. Patient denies any fever, chills, rash, visual changes, dizziness, cough, sore throat, shortness of breath, chest pain, palpitations, diarrhea, constipation, abdominal pain, or any urinary issues. [facility] Past Medical History Medical History Vomiting during Surgical History Surgical History History of cholecystectomy Family History Family History Father , unknown reason per Phoebe Unknown family medical history Mother Hypertension Asthma Social History Social History Years smoked: 0.5 Smoking status: Former smoker Tobacco type: cigarettes Second hand tobacco smoke exposure: Yes Smoking end date: 07/07/15 Alcohol intake: current Alcohol use details: RARE Substance use: never Substance use type: does not use Living arrangements: with family Occupation/Education: occupation Gender identity (if verbalized by the patient): Female Sexual Orientation (if Verbalized by the Patient): Straight or Heterosexual Spiritual care concerns: No Comments At the time of my signature, I reviewed and agree with the nursing past medical, surgical, social, and family history. There is no relevant family history pertinent to the patient complaint. Exam Narrative: General: Well-developed, well nourished, in no apparent distress Head: Normocephalic, atraumatic Eyes: Pupils equally round and reactive to light bilaterally, EOM intact, sclera and conjunctive clear, no discharge, lids normal Ears: TMs intact and clear, ear canals clear, no drainage, grossly hearing normal. Nose: Nares patent, clear nasal discharge, no inflammation, no sinus tenderness. Mouth: Oropharynx without lesions or masses, good dentition, MMM. Tongue midline, even rise and fall of uvula Neck: Supple, trachea midline, no enlargement of anterior or posterior cervical nodes, no thyroid masses or goiter palpable. Cardio: Regular rate and rhythm, s1 and s2 normal, no murmur appreciated. Resp: Clear to auscultation bilaterally anteriorly and posteriorly, no rhonchi, rales, wheezing or rubs Musculoskeletal: No deformity, non-tender to palpation, grossly normal range of motion, muscle strength strong and equal, peripheral pulse strong, no edema, no cyanosis, normal gait and station Neuro: Alert and oriented x4 with normal speech, no focal deficits, cranial nerves I through XII intact, muscle strength 5 out of 5, sensation intact bilaterally. Course Course Emergency Course: Portions of this record may have been created with voice recognition software. Level of Care: Express Care Visit Vital Signs Vital signs: Vital Signs Temperature 36.6 C 05/07/24 08:15 Pulse Rate 78 05/07/24 08:15 Respiratory Rate 18 05/07/24 08:15 Blood Pressure 122/83 05/07/24 08:15 Pulse Oximetry 98 05/07/24 08:15 Oxygen Delivery Room Air 05/07/24 08:15 Temperature 36.6 C 05/07/24 08:15 Pulse Rate 78 05/07/24 08:15 Respiratory Rate 18 05/07/24 08:15 Blood Pressure 122/83 05/07/24 08:15 Pulse Oximetry 98 05/07/24 08:15 Oxygen Delivery Room Air 05/07/24 08:15 Vital signs reviewed MDM - Headache MDM Narrative Medical decision making narrative: At the time of visit patient is resting comfortably on the exam table. Patient appears to be nontoxic. Medications: Toradol 60 mg IM, Zofran 4 mg ODT, and Benadryl 50 mg IM given in the clinic today. Plan: I suspect patient has a migraine headache. Patient does have a driver license reviewing officer to take her home today. Toradol,Benadryl,and zofran given. Patient's pain improved from a 7/10 down to a 3/10. Will send in prescription for Zofran. Recommend taking Tylenol/Motrin together for a headache. Supportive measures were discussed with the patient and they voiced understanding discharge instructions and agrees to treatment plan. Return precautions reviewed Differential Diagnosis Differential diagnosis: Likely migraine, tension headache, subarachnoid hemorrhage, headache, meningitis and sinusitis Discharge Plan Discharge Clinical Impression: Migraine Patient Disposition: Home, Self-Care Condition: Stable Instructions: Antibiotic Form, Migraine Headache (ED) Additional Instructions: Go home and rest in a cool dark place Increase fluids and stay well hydrated May take 1 g of Tylenol/600 mg of ibuprofen every 8 hours as needed for migraine headache May take Zofran 4 mg ODT every 8 hours as needed for nausea May apply ice pack to your head to help alleviate pain Go to the emergency room if symptoms worsen-worsening of headache, visual changes, confusion, lethargy, weakness, difficulty walking, chest pain, or shortness breath Prescriptions: New ondansetron 4 mg tablet,disintegrating 4 mg PO Q8H PRN (Reason: nausea and vomiting) 3 Days Qty: 10 0RF No Action magnesium oxide 400 mg (241.3 mg magnesium) tablet 400 mg PO DAILY fluoxetine 10 mg capsule 10 mg PO DAILY ergocalciferol (vitamin D2) 1,250 mcg (50,000 unit) capsule 1,250 mcg PO WEEKLY Follow-up/Referrals: [place] MD [Primary Care Provider] - Time of Disposition: 09:01 Quality NIHSS Nursing Documentation ED NIHSS nursing documentation: reviewed/agree
[2024-05-07 08:15] VITALS: BP 122/83; PULSE 78; RESP 18; TEMP 36.6; O2SAT 98
[2024-05-07] MEDS: diphenhydrAMINE HCl INJ 50 MG/ML VIAL IM (08:37)
[2024-05-07] MEDS: ONDANSETRON HCL ODT 4 MG TABLET SUBLINGUAL (08:37)
[2024-05-07] MEDS: KETOROLAC (*BKC) 60 MG/2 ML VIAL IM (08:37)
== END 2024-05-07 09:08 | disposition home or self-care (01) ==
PROVIDERS: Emergency Provider Nurse Practitioner Family; PCP Internal Medicine
DX: G43.909 Migraine, unspecified, not intractable, without status migrainosus (principal); Z87.891 Personal history of nicotine dependence
CPT/HCPCS: 96372; 99214; A9270; G0463; J1200; J1885